=== PATIENT | female | born 1970 | race Caucasian/White ===

== ENCOUNTER → 2016-09-01 | Outpatient (CLI) | payer BC, OTHER ==
--- NOTE | 2016-09-01 13:43 | Diagnostic Imaging Report ---
Bilateral screening mammogram. The current study was also evaluated with a Computer Aided Detection (CAD) system. INDICATION: Screening. No current complaints stated on the questionnaire. COMPARISON: 01/03/15 FINDINGS: The breasts are composed of heterogeneously dense parenchyma which may decrease mammographic sensitivity. There is no mass, architectural distortion or suspicious cluster of calcification. Allowing for technique and positional differences, no suspicious change is seen. IMPRESSION: Dense breasts with no definite change. ACR BI-RADS Category 2: Benign findings. Result letter will be mailed to the patient. Note: At least 10% of breast cancer is not imaged by mammography. Dictated by: Dictated on workstation # [id number]
== END | disposition home or self-care (01) ==
LOC: RAD 10:01
PROVIDERS: ATTEND Obstetrics & Gynecology
DX: Z12.31 Encounter for screening mammogram for malignant neoplasm of breast (principal)
CPT/HCPCS: 77067

== ENCOUNTER → 2018-09-15 | Outpatient (CLI) | payer BC ==
--- NOTE | 2018-09-15 10:22 | Diagnostic Imaging Report ---
INDICATION: Routine screening. COMPARISON: 09/14/2017 and 09/01/2016. TECHNIQUE: 2D and 3D bilateral screening mammography was performed with CAD. FINDINGS: Both breasts are heterogeneously dense, limiting the sensitivity of mammography. No mass or malignant appearing microcalcifications are seen. The axillae are unremarkable. IMPRESSION: No mammographic features suspicious for malignancy are identified. ACR BI-RADS Category 1: Negative. Result letter will be mailed to the patient. Note: At least 10% of breast cancer is not imaged by mammography. Dictated by: Dictated on workstation # [id number]
== END ==
LOC: RAD 07:41
PROVIDERS: ATTEND Obstetrics & Gynecology
DX: Z12.31 Encounter for screening mammogram for malignant neoplasm of breast (principal)
CPT/HCPCS: 77067

== ENCOUNTER 2018-10-08 07:43 | Day surgery (SDC) | payer BC ==
--- NOTE | 2018-10-07 19:34 | HISTORY AND PHYSICAL ---
DATE OF SERVICE: COLONOSCOPY HISTORY AND PHYSICAL HISTORY OF PRESENT ILLNESS: The patient is a 48-year-old white female referred by Dr. Bhatia, for her first screening colonoscopy. She is deemed to be of higher than average risk as her brother was diagnosed with colon cancer in his late 40s. She reports that she feels well. She denies bowel habit change. She has no history of constipation, diarrhea, bright red blood per rectum or melena. She denies abdominal pain. PAST MEDICAL HISTORY: Significant for history of SVT for which she has had no recurrence since she underwent ablation several years ago. PAST SURGICAL HISTORY: She has had multiple lipomas removed in the past and a distant past history of tonsillectomy and adenoidectomy in regard to her past surgical history. FAMILY HISTORY: Most pertinent for brother who was diagnosed with colon cancer in his late 40s. She is not aware of any other family history for colon cancer. Mother is living at the age of 85 with a history of diabetes and father at the age of 76 with complications from heart failure due to coronary artery disease. 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 REVIEW OF SYSTEMS: CONSTITUTIONAL: She has had no night sweats, chills, fever or change in weight. GASTROINTESTINAL: As per HPI. PULMONARY: She denies any wheezing, cough, hemoptysis, dyspnea at rest or on exertion. CARDIOVASCULAR: She has had no recurrence of SVT post-ablation. Denies orthopnea, PND, pedal edema or chest pain. PHYSICAL EXAMINATION: GENERAL: Reveals a well-appearing white female, in no acute distress. VITAL SIGNS: Weight is 174 pounds, blood pressure 140/88. HEENT: Unremarkable. She is a Mallampati class 2 pharyngeal configuration. Oral cavity is clear. NECK: Revealed no JVD, adenopathy or bruits. CHEST: Clear to auscultation. CARDIOVASCULAR: Reveals a regular rate and rhythm without murmur, S3 or S4. ABDOMEN: Soft, supple without mass, organomegaly or tenderness. Bowel sounds are positive in all four quadrants. No bruits are noted. EXTREMITIES: Reveal no cyanosis, clubbing or edema. ASSESSMENT: The patient is set up for screening colonoscopy on 10/08/2018. Prep instructions with the Suprep kit were given and questions were answered. I did advise considering family history that even if her colonoscopy is normal that she consider early screening colonoscopy due to a family history of first-degree relative with relatively early colon cancer diagnosed in his 40s and her brother. Job ID: [id number] DocumentID: [id number] Dictated Date: 10/06/2018 16:39:13 Independent Jeweler Date: 10/06/2018 16:57:44 Dictated By: LILI TOM MD
[2018-10-08] VITALS (13 sets, daily range): BP systolic 92–139; BP diastolic 56–72
[~2018-10-08] VITALS: Ht 162.6 cm; Wt 79.4 kg
[2018-10-08] MEDS ORDERED: D5 LR IV SOLUTION 1,000 ML IV STA (07:57)
[2018-10-08] MEDS ORDERED: MIDAZOLAM 2 MG/2 ML (VERSED) VIAL IVP ONE (08:00)
[2018-10-08] MEDS ORDERED: fentaNYL INJECTION 100 MCG/2 ML AMP IVP ONE (08:00)
--- NOTE | 2018-10-08 08:00 | Pre-Op Note & Conscious Sedat ---
Pre-Operative Progress Note H&P Reviewed The H&P was reviewed, patient examined and no changes noted. Date H&P Reviewed: Oct 08, 2018 Time H&P Reviewed: 08:00 Conscious Sedation Pre-Proced ASA Score 1 For ASA 3 and 4: Consider anesthesia and medical clearance. Also, for patients with a history of failed moderate sedation consider anesthesia. Airway Lungs Heart ASA score ASA 1: a normal healthy patient ASA 2: a patient with a mild systemic disease (mid diabetes, controlled hypertension, obesity ASA 3: a patient with a severe systemic disease that limits activity (angina, COPD, prior Myocardial infarction) ASA 4: a patient with an incapacitating disease that is a constant threat to life (CHF, renal failure) ASA 5: a moribund patient not expected to survive 24 hrs. (ruptured aneurysm) ASA 6: a declared brain- patient whose organs are being harvested. For emergent operations, add the letter E after the classification Mallampati Classification Grade 2 Sedation Plan Analgesia, Amnesia, Plan communicated to team members, Discussed options with patient/fam, Discussed risks with patient/fam The patient is an appropriate candidate to undergo the planned procedure, sedation, and anesthesia. The patient immediately re-assessed prior to indication. LILI TOM MD Oct 08, 2018 08:00
[2018-10-08] MEDS ORDERED: D5 LR IV SOLUTION 1,000 ML IV ONE (08:10)
[2018-10-08] MEDS ORDERED: LIDOCAINE JELLY 2% 6 ML SYRINGE ONE (08:59)
[2018-10-08] MEDS ORDERED: MIDAZOLAM 2 MG/2 ML (VERSED) VIAL ONE ×2 (08:59)
[2018-10-08] MEDS ORDERED: fentaNYL INJECTION 100 MCG/2 ML AMP ONE (08:59)
--- OUTSIDE RECORDS SUMMARY | 2018-10-08 18:00 | XMS REPORT | CCD ---
Author Author KATHIE RIZVI Organization Unknown Address [address] [facility] [address] [place], [place] [id number] Care Team Providers Care Retail Account Executive Name Role Phone DEWEY SOLANO, DREA Hayes Attphys Vital Signs Vital Sign Value Unit Date/Time Recent/Initial? Weight Measured 155 lbs 07/13/2015 14:48 Initial VS Height 64 in 07/13/2015 14:48 Initial VS BMI (Body Mass Index) 26.61 kg/m^2 07/13/2015 14:48 Initial VS BSA (Body Surface Area) 1.78 m^2 07/13/2015 14:48 Initial VS BP Systolic 90 mmHg 07/19/2015 08:44 Initial VS BP Diastolic 47 mmHg 07/19/2015 08:44 Initial VS Respiratory Rate 16 bpm 07/19/2015 08:44 Initial VS Heart Rate 57 bpm 07/19/2015 08:44 Initial VS O2 % BldC Oximetry 95 % 07/19/2015 08:44 Initial VS Respiratory Rate 15 bpm 07/19/2015 09:22 Most Recent VS O2 % BldC Oximetry 97 % 07/19/2015 09:22 Most Recent VS BP Systolic 109 mmHg 07/19/2015 09:23 Most Recent VS BP Diastolic 76 mmHg 07/19/2015 09:23 Most Recent VS Heart Rate 67 bpm 07/19/2015 09:23 Most Recent VS Allergies Allergy Code Allergy Type Reaction Status No Known Drug Allergies 0 No known drug allergies Active Procedures Procedure Code Procedure Type Date Arthroscopically aided anterior [place] [address] CPT 07/19/2015 TEST URINE 835369495 SNOMED CT 07/19/2015 History of Immunizations Unknown or Not Available. Problems Unknown or Not Available. Results TEST URINE - Collect Date/Time: 07/19/2015 06:38 Test Name Code Test Result Test Units Test Ref Range TEST UR 2106-3 NEGATIVE N/A Active Medications No Active Medications Medications Administered During Visit Unknown or Not Available. Encounters Encounter Diagnosis Diagnosis Code Start Date Sprain of anterior cruciate ligament of left knee, initial encounter [id number] 07/19/2015 Social History Smoking Status Code Start Date End Date Never smoker [id number] Patient Decision Aids Patient Decision Aid KNEE ACL; AFTER THE PROCEDURE Discharge Instructions You were admitted to [facility] on 07/19/2015 06:12 with a principal diagnosis of Sprain of anterior cruciate ligament of left knee, initial encounter You had the following procedures done: Arthroscopically aided anterior cruciate ligament repair/augmentation or r You had the following tests done: TEST URINE You were discharged from [facility] on 07/19/2015 11:10 Should you have any questions prior to discharge, please contact a member of your healthcare team. If you have left the hospital and have any questions, please contact your primary care physician. Chief Complaint and Reason For Visit Chief Complaint Date of Onset ACL WITH ALLOGRAFT LEFT Function Status Unknown or Not Available. Plan of Care Unknown or Not Available. Referral/Transition of Care Unknown or Not Available.
--- OUTSIDE RECORDS SUMMARY | 2018-10-08 18:00 | XMS REPORT | CCD ---
Author Author KATHIE RIZVI Organization Unknown Address [address] [facility] [address] [place] [address] Care Team Providers Care Writing Center Director Name Role Phone LUAN WEAVER MD Attphys LUAN WEAVER MD Prisurg Allergies Allergy Code Allergy Type Reaction Status No Known Drug Allergies 0 Drug allergy Active Active Medications Unknown or Not Available. Problems Unknown or Not Available. Procedures Procedure Code Procedure Type Date ^CBC W/AUTO DIFF 2363073 SNOMED CT 12/05/2015 COMPREHENSIVE METABOLIC PANEL 851945443 SNOMED CT 12/05/2015 CBC W/ AUTO DIFF (RFLX MAN DIFF IF IND) 7562947 SNOMED CT 12/05/2015 TROPONIN-I ADV 367259479 SNOMED CT 12/05/2015 Results COMPREHENSIVE METABOLIC PANEL - Collect Date/Time: 12/05/2015 19:42 Test Name Code Test Result Test Units Test Ref Range GLUCOSE 2345-7 126 MG/DL L=70 H=100 SODIUM 2951-2 141 MEQ/L L=135 H=148 POTASSIUM 2823-3 3.8 MEQ/L L=3.5 H=5.3 CHLORIDE 2075-0 107 MEQ/L L=96 H=110 CO2 2028-9 21 MEQ/L L=22 H=29 BUN 3094-0 12 MG/DL L=8 H=22 CREATININE 2160-0 0.8 MG/DL L=0.6 H=1.6 SGOT/AST 1920-8 30 IU/L L=10 H=40 SGPT/ALT 1742-6 31 IU/L L=8 H=54 ALK PHOS 6768-6 67 IU/L L=35 H=115 TOTAL PROTEIN 2885-2 7.5 G/DL L=5.5 H=8.5 ALBUMIN 1751-7 4.6 G/DL L=3.1 H=5.4 TOTAL BILI 1975-2 0.4 MG/DL L=0.0 H=1.5 CALCIUM 43019-7 9.9 MG/DL L=8.2 H=10.6 AGE 45 yrs GFR NonAA 77 GFR AA 93 eGFR >60 N/A eGFR AA* >60 N/A CBC W/ AUTO DIFF (RFLX MAN DIFF IF IND) - Collect Date/Time: 12/05/2015 19:42 Test Name Code Test Result Test Units Test Ref Range WBC 66950-7 8.8 TH/CMM L=4.5 H=10.8 RBC 789-8 4.38 ML/CMM L=4.20 H=5.40 HGB 718-7 13.9 G/DL L=12.0 H=16.0 HCT 4544-3 40.5 % L=37.0 H=47.0 MCV 93 FL L=81 H=99 MCH 31.7 PG L=27.0 H=33.0 MCHC 34.3 G/DL L=31.0 H=36.0 RDW SD 41 FL L=36 H=50 RDW CV 11.9 % L=0.0 H=14.8 MPV 9.4 FL L=9.3 H=12.5 PLT 777-3 322 TH/CMM L=130 H=440 NRBC# 0.00 TH/CMM L=0.00 H=0.00 NRBC% 0.0 /100WBC L=0.0 H=2.0 %NEUT 50.2 % %LYMP 39.0 % %MONO 8.1 % %EOS 2.2 % %BASO 0.3 % #NEUT 4.39 TH/CMM L=2.10 H=8.20 #LYMP 3.41 TH/CMM L=0.90 H=5.20 #MONO 0.71 TH/CMM L=0.16 H=1.00 #EOS 0.19 TH/CMM L=0.00 H=0.80 #BASO 0.03 TH/CMM L=0.00 H=0.20 MANUAL DIFF NOT IND N/A TROPONIN-I ADV - Collect Date/Time: 12/05/2015 19:42 Test Name Code Test Result Test Units [place] [address]-0 <0.04 ng/mL L=0.04 H=0.40 Function Status Unknown or Not Available. History of Immunizations Unknown or Not Available. Plan of Treatment Unknown or Not Available. Social History Smoking Status Code Start Date End Date Never smoker [id number] Vital Signs Unknown or Not Available. Function Status Unknown or Not Available. Goals Unknown or Not Available. ASSESSMENTS Unknown or Not Available. Health Concerns Section Unknown or Not Available.
--- OUTSIDE RECORDS SUMMARY | 2018-10-08 18:01 | XMS REPORT ---
Author Author Moon Fitzgerald Organization [facility] Address [address] [place], [place] [id number] Care Team Providers Care Dice Table Person Name Role Phone Moon Fitzgerald PCP Moon Fitzgerald PreferredProvider Allergies and Adverse Reactions Name Reaction Notes NO KNOWN DRUG ALLERGIES Plan of Treatment Planned Activity Comments Planned Date Planned Time Plan/Goal Injection, Subcutaneous/IM 06/16/2018 12:00 AM Medications Active Name Start Date Estimated Completion Date SIG Comments calcium Vitamin D amoxicillin 875 mg oral tablet 06/16/2018 06/26/2018 take 1 tablet (875 mg) by oral route every 12 hours for 10 days Name Start Date Expiration Date SIG Comments neomycin-polymyxin B-dexameth 3.5mg/mL-10,000 unit/mL-0.1 % ophthalmic drops,suspension 05/14/2016 05/19/2016 2 gtts 3xd for 5d in both eyes Discontinued Name Start Date Discontinued Date SIG Comments Zovirax 5 % topical cream 05/14/2016 apply by topical route 5 times per day prn fever blisters Valtrex 500 mg oral tablet 05/14/2016 take 2 tablets (1,000 mg) by oral route 2 times per day x 1 day prn fever blisters Fibersource HN oral liquid 06/16/2018 Problem List Not available. Vital Signs Date Time BP-Sys(mm[Hg] BP-Pati(mm[Hg]) HR(bpm) RR(rpm) Temp WT HT HC BMI BSA BMI Percentile O2 Sat(%) 06/16/2018 10:46:00 AM 136 mmHg 84 mmHg 76 bpm 18 rpm 98.6 F 174.125 lbs 64 in 29.8882 kg/m 1.8885 m 95 % 05/14/2016 9:43:00 AM 116 mmHg 68 mmHg 62 bpm 18 rpm 97.6 F 172.125 lbs 64 in 29.54 kg/m2 1.88 m2 98 % 10/18/2009 4:16:00 PM 122 mmHg 78 mmHg 66 bpm 98.4 F 147.5 lbs 64 in 25.3181 kg/m 1.7381 m Social History Name Description Comments Tobacco Never smoker Caffeine Current every day 1 a day Exercise jogging No Alcohol Use History of Procedures Date Ordered Description Order Status 06/16/2018 12:00 AM Decadron 4mg Injection Reviewed 06/16/2018 12:00 AM Depo-Medrol 40mg Injection Reviewed 10/18/2009 12:00 AM CYTOPATH C/V MANUAL Reviewed 10/18/2009 12:00 AM SPECIMEN HANDLING OFFICE-LAB Reviewed 10/18/2009 12:00 AM MAMMOGRAM BOTH BREASTS Reviewed Results Summary Date and Description Results 06/16/2018 11:38 AM Falls in last 6 months? No Unsteady or worry about falling? No Fall Risk Assessment Not At Risk During the past month, have you been feeling depressed? No During the past month, have you lost interest in usual activity? No History Of Immunizations Not available. History of Past Illness Name Date of Onset Comments Routine gynecological examination Oct 18 2009 4:19PM Headache Oct 18 2009 4:19PM Heart problem Acute atopic conjunctivitis, bilateral May 14 2016 9:45AM Allergic rhinitis, unspecified May 14 2016 9:45AM Eczema of face May 14 2016 9:45AM Sinusitis, Acute Jun 16 2018 10:51AM Allergic asthma Jun 16 2018 10:51AM Purulent rhinitis Jun 16 2018 10:51AM Payers Insurance Name Company Name Plan Name Plan Number Policy Number Policy Group Number Start Date [employer] [place] [id number] N/A [employer] Insurance Company [employer] Insur [id number] N/A [employer] [place] INVALID N/A [employer] [place] [id number] N/A Aetna Aetna [id number] N/A History of Encounters Visit Date Visit Type Provider 06/16/2018 Office visit Moon Fitzgerald MANPOWER DEVELOPMENT ADVISOR 05/14/2016 Office visit Moon Fitzgerald MANPOWER DEVELOPMENT ADVISOR 12/05/2015 Hospital Faisal Sánchez MD 06/28/2013 [facility] Faisal Sánchez MD 10/18/2009 Office visit Felicitas Roa MD
--- OUTSIDE RECORDS SUMMARY | 2018-10-08 18:01 | XMS REPORT ---
Author Author Moon Fitzgerald Organization [facility] Address [address] [place], [place] [address] Care Team Providers Care Sales Promotion Coordinator Name Role Phone Moon Fitzgerald Catherine PCP [phone] LiaMoonShea PreferredProvider [phone] Allergies and Adverse Reactions Name Reaction Notes NO KNOWN DRUG ALLERGIES Plan of Treatment Not available. Medications Active Name Start Date Estimated Completion Date SIG Comments Fibersource HN oral liquid calcium Vitamin D Name Start Date Expiration Date SIG Comments [...] day x 1 day prn fever blisters Problem List Not available. Vital Signs Date Time BP-Sys(mm[Hg] BP-Pati(mm[Hg]) HR(bpm) RR(rpm) Temp WT HT HC BMI BSA BMI Percentile O2 Sat(%) 05/14/2016 9:43:00 AM 116 mmHg 68 mmHg [...] of Procedures Date Ordered Description Order Status 10/18/2009 12:00 AM CYTOPATH C/V MANUAL Reviewed 10/18/2009 12:00 AM SPECIMEN HANDLING OFFICE-LAB Reviewed 10/18/2009 12:00 AM MAMMOGRAM BOTH BREASTS Reviewed Results Summary Not available. History Of Immunizations Not available. History of Past Illness Name Date of Onset Comments Routine gynecological examination Oct 18 2009 4:19PM Headache Oct 18 2009 4:19PM Heart problem Acute atopic conjunctivitis, bilateral May 14 2016 9:45AM Allergic rhinitis, unspecified May 14 2016 9:45AM Eczema of face May 14 2016 9:45AM Payers Insurance Name Company Name Plan Name Plan Number Policy Number Policy Group Number Start Date [employer] [place] [id number] N/A [employer] Insurance Company [employer] Insur [id number] N/A BCBS [employer] [facility] INVALID N/A [facility] [id number] N/A Aetna Aetna [id number] N/A History of Encounters Visit Date Visit Type Provider 05/14/2016 Office visit Moon Fitzgerald SWEATBAND SHAPER 12/05/2015 [facility] Faisal Sánchez MD 06/28/2013 [facility] Faisal Sánchez MD 10/18/2009 Office visit Felicitas Roa MD
--- OUTSIDE RECORDS SUMMARY | 2018-10-08 18:01 | XMS REPORT | Continuity of Care Document ---
Author Organization Unknown Address Unknown Allergies There is no data. Medications There is no data. Problems Date Dx Coded Attending Type Code Diagnosis Diagnosed By 08/27/2016 EULA WILKERSON MD, Ot 611.72 LUMP OR MASS IN BREAST 08/27/2016 EULA WILKERSON MD Ot 793.82 INCONCLUSIVE MAMMOGRAM 08/27/2016 EULA WILKERSON MD, Ot V76.12 OTH SCREEN MAMMO-MALIGN NEOPLASM OF CARLEEN 08/28/2016 EULA WILKERSON MD, Ot 611.72 LUMP OR MASS IN BREAST 08/28/2016 EULA WILKERSON MD Ot 793.82 INCONCLUSIVE MAMMOGRAM 08/28/2016 EULA WILKERSON MD, Ot V76.12 OTH SCREEN MAMMO-MALIGN NEOPLASM OF CARLEEN 09/11/2016 EULA WILKERSON MD Ot Z12.31 ENCNTR SCREEN MAMMOGRAM FOR MALIGNANT NE 09/15/2017 EULA WILKERSON MD, Ot Z12.31 ENCNTR SCREEN MAMMOGRAM FOR MALIGNANT NE 09/15/2017 EULA WILKERSON MD Ot Z12.31 ENCNTR SCREEN MAMMOGRAM FOR MALIGNANT NE 10/01/2017 EULA WILKERSON MD Ot Z12.31 ENCNTR SCREEN MAMMOGRAM FOR MALIGNANT NE 09/16/2018 EULA WILKERSON MD Ot Z12.31 ENCNTR SCREEN MAMMOGRAM FOR MALIGNANT NE 10/01/2018 EULA WILKERSON MD, Ot Z12.31 ENCNTR SCREEN MAMMOGRAM FOR MALIGNANT NE Procedures There is no data. Results There is no data. Encounters ACCT No. Visit Date/Time Discharge Status Pt. Type Provider Facility Loc./Unit Complaint [id number] 06/16/2018 11:30:37 06/16/2018 23:59:59 [facility] Outpatient Freddy Fitzgerald [id number] 05/14/2016 10:21:55 05/14/2016 23:59:59 [facility] Outpatient Freddy Fitzgerald [id number] 12/27/2015 13:02:23 12/27/2015 23:59:59 [facility] Outpatient Faisal Sánchez [id number] 07/29/2013 16:06:36 07/29/2013 23:59:59 [facility] Outpatient Faisal Sánchez [id number] 09/15/2018 07:41:00 09/15/2018 23:59:59 [facility] Outpatient EULA WILKERSON MD [facility] RAD SCREENING [id number] 09/14/2017 08:17:00 09/14/2017 23:59:59 [facility] Outpatient EULA WILKERSON MD [facility] RAD SCREENING [id number] 09/01/2016 10:01:00 09/01/2016 23:59:59 [facility] Outpatient EULA WILKERSON MD [facility] RAD SCREENING Z12.31 [id number] 01/03/2015 08:51:00 01/03/2015 23:59:59 [facility] Outpatient EULA WILKERSON MD [facility] RAD [id number] 11/07/2013 15:37:00 11/07/2013 23:59:59 [facility] Outpatient EULA WILKERSON MD [facility] RAD SCREENING [id number] 11/08/2012 07:36:00 11/08/2012 23:59:59 [facility] Outpatient EULA WILKERSON MD [facility] RAD LT BREAST DENSITY [id number] 10/08/2018 08:30:00 LILI Sawant MD [facility] ENDO SCREENING
--- NOTE | 2018-10-08 20:09 | OPERATIVE REPORT ---
DATE OF SERVICE: COLONOSCOPY SUMMARY INDICATION FOR THE PROCEDURE: Screening colonoscopy. DESCRIPTION OF PROCEDURE: The patient was placed in the left lateral decubitus position. Prior to undergoing colonoscopy, digital rectal evaluation was performed. Anal sphincter tone was normal and the perianal reflexes intact. Digital evaluation was compatible with a small anterior rectocele with no other abnormalities being noted on digital rectal evaluation of the anal canal or distal rectal vault. The colonoscope was then inserted into the rectum and under direct visualization advanced to the cecum. The cecum was identified by identification of the ileocecal valve and cecal strap. Photographic documentation was obtained. Careful inspection was made as the colonoscope withdrawn. The patient tolerated the procedure well. FINDINGS: There was no evidence for internal or external hemorrhoids. Two hyperplastic appearing small rectal polyps were noted, both sessile, 3 to 4 mm size range, one noted in the distal rectum and one at the rectosigmoid junction. Both were biopsied and ablated and submitted for histopathology. The sigmoid colon, descending colon, transverse colon, ascending colon and cecum were unremarkable. No evidence for diverticular disease was noted. ASSESSMENT: Two diminutive hyperplastic appearing polyps were removed from the rectum as noted above via hot forceps. This was otherwise normal colonoscopy up to the cecum, although digital rectal evaluation was compatible with a small anterior rectocele. Considering the patient's family history for colon cancer in a first degree relative, I would advocate consideration for repeat screening colonoscopy in 5 years. I thank you for the referral of this pleasant lady. Job ID: [id number] DocumentID: [id number] Dictated Date: 10/08/2018 12:06:19 Dredge Hand Date: 10/08/2018 20:08:21 Dictated By: LILI TOM MD MTDD
== END 2018-10-08 10:55 | disposition home or self-care (01) ==
LOC: ENDO 07:43
PROVIDERS: ATTEND Internal Medicine
DX: Z12.11 Encounter for screening for malignant neoplasm of colon (principal); K62.1 Rectal polyp; K63.5 Polyp of colon; Z80.0 Family history of malignant neoplasm of digestive organs
CPT/HCPCS: 84703

== ENCOUNTER → 2019-09-19 | Outpatient (CLI) | payer BC ==
--- NOTE | 2019-09-19 09:13 | Diagnostic Imaging Report ---
INDICATION: Routine screening. Comparison is made with prior mammogram from 09/15/2018 and 09/14/2017. 2-D and 3-D bilateral screening mammography was performed with CAD. Both breasts remain heterogeneously dense, limiting the sensitivity of mammography. The parenchymal pattern is stable. No dominant mass or malignant-appearing microcalcifications are seen. Axillae are unremarkable. IMPRESSION: BI-RADS Category 1 No mammographic features suspicious for malignancy are identified. ACR BI-RADS Category 1: Negative. Result letter will be mailed to the patient. Note: At least 10% of breast cancer is not imaged by mammography. Dictated by: Dictated on workstation # [id number]
== END ==
LOC: RAD 08:13
PROVIDERS: ATTEND Obstetrics & Gynecology
DX: Z12.31 Encounter for screening mammogram for malignant neoplasm of breast (principal)
CPT/HCPCS: 77063; 77067

== ENCOUNTER 2019-09-23 10:11 | Emergency (ER) | payer BC ==
[~2019-09-23] VITALS: Ht 162 cm; Wt 79.1 kg
[2019-09-23 10:51] LABS: BASOPHILS % (AUTO) 0 % (0-10); EOSINOPHILS # (AUTO) 0.1 10^3/uL (0.0-0.3); EOSINOPHILS % (AUTO) 2 % (0-10); HEMATOCRIT 41 % (35-52); HEMOGLOBIN 13.9 G/DL (11.5-16.0); LYMPHOCYTES # (AUTO) 1.8 X 10^3 (1.0-4.0); LYMPHOCYTES % (AUTO) 37 % (12-44); MEAN CORPUSCULAR HEMOGLOBIN 31 PG (25-34); MEAN CORPUSCULAR HGB CONC 34 G/DL (32-36); MEAN CORPUSCULAR VOLUME 92 FL (80-99); MEAN PLATELET VOLUME 9.9 FL (7.4-10.4); MONOCYTES # (AUTO) 0.4 X 10^3 (0.0-1.0); MONOCYTES % (AUTO) 8 % (0-12); NEUTROPHILS # (AUTO) 2.6 X 10^3 (1.8-7.8); NEUTROPHILS % (AUTO) 53 % (42-75); PLATELET COUNT 327 10^3/uL (130-400); RED CELL DISTRIBUTION WIDTH 12.5 % (10.0-14.5); WHITE BLOOD COUNT 4.9 10^3/uL (4.3-11.0)
[2019-09-23 10:58] LABS: ALBUMIN 4.1 GM/DL (3.2-4.5); CHLORIDE 108 MMOL/L (98-107); POTASSIUM 4.5 MMOL/L (3.6-5.0); SODIUM 138 MMOL/L (135-145)
[2019-09-23 11:00] LABS: CALCIUM 9.2 MG/DL (8.5-10.1)
[2019-09-23 11:01] LABS: GLUCOSE 98 MG/DL (70-105); TOTAL PROTEIN 7.1 GM/DL (6.4-8.2)
[2019-09-23 11:02] LABS: CARBON DIOXIDE 18 MMOL/L (21-32)
[2019-09-23 11:03] LABS: BILIRUBIN,TOTAL 0.5 MG/DL (0.1-1.0)
[2019-09-23 11:04] LABS: ALKALINE PHOSPHATASE 84 U/L (40-136); CREATININE SERUM 0.77 MG/DL (0.60-1.30); GFR ESTIMATED > 60
[2019-09-23 11:05] LABS: BUN/CREATININE RATIO 12; PROTHROMBIN TIME PATIENT 13.2 SEC (12.2-14.7)
[2019-09-23 11:07] LABS: ALANINE AMINOTRANSFERASE 34 U/L (0-55)
--- NOTE | 2019-09-23 11:25 | ED GU-Female ---
General Chief Complaint: Female Reproductive Stated Complaint: STATES HEMHORRAGEFOR ABOUT 36 HOURS Nursing Triage Note: PT AMBULATED TO ROOM 9 PT CO OF HEAVY MENSTRAL BLEEDING FOR APPROX 36 HOUR. PT STATES USING A PAD AND A TAMPON ABOUT Q HOUR. STATES ONLY HAS SL PRESSURE IN LOWER ABD. PT STATES HAD PAP RESULTS THIS WEEK AND EVERYTHING WAS OK. STATES HAS ENLARGED UTERUS AND SOME FIBROID TUMORS. LMP 08/22/19 Nursing Sepsis Screen: No Definite Risk Source: patient Exam Limitations: no limitations History of Present Illness Date Seen by Provider: Sep 23, 2019 Time Seen by Provider: 10:34 Initial Comments Patient presents ER by private conveyance chief complaint the past 36 hours she been having pretty heavy bleeding about one pad every hour to an hour and a half as well as using tampons. No large blood clots. She had a Pap smear on Thursday with Dr. Bhatia and have the results called and were normal earlier in the week. She has a history of fibroids. She says her periods of been very irregular since she suspected she was perimenopausal. She said Dr. Bhatia for blood and told her that she was not menopausal yet. Allergies and Home Medications Allergies Coded Allergies: No Known Drug Allergies (Unverified , 10/08/18) Home Medications No Active Prescriptions or Reported Meds Patient Home Medication List Home Medication List Reviewed: Yes Review of Systems Review of Systems Constitutional: No chills, No diaphoresis EENTM: No ear discharge, No ear pain Respiratory: No cough, No short of breath Cardiovascular: No edema, No palpitations Gastrointestinal: No abdominal pain, No constipation, No nausea Genitourinary: see HPI; denies discharge, denies dysuria : No Musculoskeletal: No back pain, No joint pain All Other Systemes Reviewed Negative Unless Noted: Yes Past Bugzkxi-Pmlpsc-Uichtm Hx Patient Social History Alcohol Use: Denies Use Recreational Drug Use: No Smoking Status: Never a Smoker 2nd Hand Smoke Exposure: No Recent Foreign Travel: No Contact w/Someone Who Travel: No Recent Infectious Disease Expo: No Recent Hopitalizations: No Physical Abuse: No Sexual Abuse: No Seasonal Allergies Seasonal Allergies: No Past Medical History Surgeries: Yes (ABLATION, FATTY TUMOR REMOVED, ACL REPAIR) Cardiac, Tonsillectomy Respiratory: No Cardiac: Yes (ABLATION) Neurological: No Last Menstrual Period: Aug 22, 2019 Genitourinary: No Gastrointestinal: No Musculoskeletal: No (ACL REPAIR) Endocrine: No HEENT: No Cancer: No Psychosocial: No Integumentary: No Blood Disorders: No Physical Exam Vital Signs Vital Signs - First Documented 09/23/19 10:20 Temp 36.7 Pulse 79 Resp 18 B/P (MAP) 106/109 (108) Pulse Ox 96 Capillary Refill : Less Than 3 Seconds Height, Weight, BMI Height: 5'4.00" Weight: 175lbs. 0.0oz. [id number]; 30.00 BMI Method: General Appearance: WD/WN, no apparent distress HEENT: PERRL/EOMI, pharynx normal Neck: full range of motion, normal inspection Cardiovascular: normal peripheral pulses, regular rate, rhythm, no edema Respiratory: lungs clear, normal breath sounds, no respiratory distress, no accessory muscle use Gastrointestinal: normal bowel sounds, non tender, soft Pelvic: normal external exam, discharge (thin bloody secretions in the vaginal vault with a parous, friable nontender cervix without purulence. No lacerations in the vaginal vault.) Neurologic/Psychiatric: alert, normal mood/affect, oriented x 3 Skin: normal color, warm/dry Progress/Results/Core Measures Suspected Sepsis Recent Fever Within 48 Hours: No Infection Criteria Present: None New/Unexplained Altered Menta: No Sepsis Screen: No Definite Risk SIRS Temperature: Pulse: 79 Respiratory Rate: 18 Laboratory Tests 09/23/19 10:32: White Blood Count 4.9 Blood Pressure 106 /109 Mean: 108 Laboratory Tests 09/23/19 10:32: Creatinine 0.77, INR Comment 1.0, Platelet Count 327, Total Bilirubin 0.5 Results/Orders Lab Results Laboratory Tests Test 09/23/19 10:32 09/23/19 10:44 09/23/19 11:27 Range/Units White Blood Count 4.9 4.3-11.0 10^3/uL Red Blood Count 4.46 4.35-5.85 10^6/uL Hemoglobin 13.9 11.5-16.0 G/DL Hematocrit 41 35-52 % Mean Corpuscular Volume 92 80-99 FL Mean Corpuscular Hemoglobin 31 25-34 PG Mean Corpuscular Hemoglobin Concent 34 32-36 G/DL Red Cell Distribution Width 12.5 10.0-14.5 % Platelet Count 327 130-400 10^3/uL Mean Platelet Volume 9.9 7.4-10.4 FL Neutrophils (%) (Auto) 53 42-75 % Lymphocytes (%) (Auto) 37 12-44 % Monocytes (%) (Auto) 8 0-12 % Eosinophils (%) (Auto) 2 0-10 % Basophils (%) (Auto) 0 0-10 % Neutrophils # (Auto) 2.6 1.8-7.8 X 10^3 Lymphocytes # (Auto) 1.8 1.0-4.0 X 10^3 Monocytes # (Auto) 0.4 0.0-1.0 X 10^3 Eosinophils # (Auto) 0.1 0.0-0.3 10^3/uL Basophils # (Auto) 0.0 0.0-0.1 10^3/uL Prothrombin Time 13.2 12.2-14.7 SEC INR Comment 1.0 0.8-1.4 Activated Partial Thromboplast Time 25 24-35 SEC Sodium Level 138 135-145 MMOL/L Potassium Level 4.5 3.6-5.0 MMOL/L Chloride Level 108 H 98-107 MMOL/L Carbon Dioxide Level 18 L 21-32 MMOL/L Anion Gap 12 5-14 MMOL/L Blood Urea Nitrogen 9 7-18 MG/DL Creatinine 0.77 0.60-1.30 MG/DL Estimat Glomerular Filtration Rate > 60 BUN/Creatinine Ratio 12 Glucose Level 98 70-105 MG/DL Calcium Level 9.2 8.5-10.1 MG/DL Corrected Calcium 9.1 8.5-10.1 MG/DL Total Bilirubin 0.5 0.1-1.0 MG/DL Aspartate Amino Transf (AST/SGOT) 26 5-34 U/L Alanine Aminotransferase (ALT/SGPT) 34 0-55 U/L Alkaline Phosphatase 84 40-136 U/L Total Protein 7.1 6.4-8.2 GM/DL Albumin 4.1 3.2-4.5 GM/DL Serum Test, Qualitative NEGATIVE NEGATIVE Urine Color YELLOW Urine Clarity CLEAR Urine pH 7.0 5-9 Urine Specific Huddy 1.015 L 1.016-1.022 Urine Protein NEGATIVE NEGATIVE Urine Glucose (UA) NEGATIVE NEGATIVE Urine Ketones NEGATIVE NEGATIVE Urine Nitrite NEGATIVE NEGATIVE Urine Bilirubin NEGATIVE NEGATIVE Urine Urobilinogen 0.2 < = 1.0 MG/DL Urine Leukocyte Esterase NEGATIVE NEGATIVE Urine RBC (Auto) 3+ H NEGATIVE Urine RBC 5-10 H /HPF Urine WBC 0-2 /HPF Urine Crystals NONE /LPF Urine Bacteria TRACE /HPF Urine Casts NONE /LPF Urine Mucus NEGATIVE /LPF Urine Culture Indicated NO My Orders Orders - KAROLINA BROWNING Cbc With Automated Diff (09/23/19 10:18) Comprehensive Metabolic Panel (09/23/19 10:18) Protime With Inr (09/23/19 10:38) Partial Thromboplastin Time (09/23/19 10:38) Ua Culture If Indicated (09/23/19 10:38) Hcg,Qualitative Serum (09/23/19 11:25) Vital Signs/I&O 09/23/19 09/23/19 10:20 12:23 Temp 36.7 Pulse 79 70 Resp 18 18 B/P (MAP) 106/109 (108) 130/69 (108) Pulse Ox 96 96 Capillary Refill : Less Than 3 Seconds Blood Pressure Mean: 108 Progress Note : Time: 12:16 Progress Note Hemoglobin 13.9 urine is okay. We did discuss the case with Dr. Bhatia and he agrees the Pap smear likely has nothing to do with this. His recommendation would be to follow up in the clinic. We have discussed this with the patient given her reassurance and answered her questions and she is okay with the plan. We have given her return precautions for chest pain or shortness of breath. Departure Impression Primary Impression: Abnormal uterine bleeding (AUB) Disposition: 01 HOME, SELF-CARE Condition: Stable Departure-Patient Inst. Decision time for Depature: 12:00 Referrals: NO,LOCAL PHYSICIAN (PCP) Primary Care Physician LOC DOLAN (Family) Primary Care Physician Patient Instructions: Heavy Periods (DC) Add. Discharge Instructions: I cannot find anything emergent or dangerous about bleeding today and would recommend you follow-up with Dr. Bhatia in the clinic. Please return to the ER if you begin to experience chest pain, shortness of breath or other worrisome symptoms. All discharge instructions reviewed with patient and/or family. Voiced understanding. Scripts No Active Prescriptions or Reported Meds KAROLINA BROWNING Sep 23, 2019 11:24
[2019-09-23 11:32] LABS: BILIRUBIN,URINE NEGATIVE (NEGATIVE); CLARITY,URINE CLEAR; COLOR,URINE YELLOW; GLUCOSE, URINE (UA) NEGATIVE (NEGATIVE); KETONES,URINE NEGATIVE (NEGATIVE); LEUKOCYTE ESTERASE ,URINE NEGATIVE (NEGATIVE); NITRITE,URINE NEGATIVE (NEGATIVE); PROTEIN,URINE NEGATIVE (NEGATIVE)
[2019-09-23 11:54] LABS: BACTERIA,URINE TRACE /HPF; WBC,URINE 0-2 /HPF
[2019-09-23 12:23] VITALS: BP 130/69
== END 2019-09-23 12:23 | disposition home or self-care (01) ==
LOC: EDUNIT# 10:11 → ER 10:14
DX: N93.9 Abnormal uterine and vaginal bleeding, unspecified (principal)
CPT/HCPCS: 36415; 80053; 81000; 84703; 85025; 85610; 85730

== ENCOUNTER → 2021-10-07 | Outpatient (CLI) | payer BC ==
--- NOTE | 2021-10-07 12:10 | Diagnostic Imaging Report ---
INDICATION: Routine screening. COMPARISON: 10/01/2020 and 09/19/2019. TECHNIQUE: 2D and 3D bilateral screening mammography was performed with CAD. FINDINGS: Both breasts are heterogeneously dense, limiting the sensitivity of mammography. The parenchymal pattern is stable. No mass or malignant-appearing microcalcifications are seen. The axillae are unremarkable. IMPRESSION: No mammographic features suspicious for malignancy are identified. ACR BI-RADS Category 1: Negative. Result letter will be mailed to the patient. Note: At least 10% of breast cancer is not imaged by mammography. Dictated by: Dictated on workstation # [id number]
== END ==
LOC: RAD 11:20
PROVIDERS: ATTEND Obstetrics & Gynecology
DX: Z12.31 Encounter for screening mammogram for malignant neoplasm of breast (principal)
CPT/HCPCS: 77063; 77067